=== PATIENT | male | born 1975 | race Asian ===

== ENCOUNTER 2018-02-11 08:45 | Outpatient (RCR) | payer BC, OTHER | END 2018-02-25 | disposition home or self-care (01) | LOC: PTY 08:45 | DX: M72.2 Plantar fascial fibromatosis (principal); M76.61 Achilles tendinitis, right leg ==

== ENCOUNTER 2018-02-26 08:57 | Outpatient (RCR) | payer BC, OTHER | END 2018-03-28 | disposition home or self-care (01) | LOC: PTY 08:57 | DX: M72.2 Plantar fascial fibromatosis (principal); M76.61 Achilles tendinitis, right leg; M76.62 Achilles tendinitis, left leg ==